=== PATIENT | male | born 1995 | race Caucasian/White ===

== ENCOUNTER → 2016-08-17 | Outpatient (CLI) | payer OTHER ==
--- NOTE | 2016-08-17 10:05 | DIAGNOSTIC IMAGING REPORT ---
LEFT KNEE 4 OR MORE CLINICAL HISTORY: Left knee pain. COMPARISON: None FINDINGS: Alignment of the left knee is anatomic with the exception of slight lateral patellar tilt. There is no fracture or joint effusion. Joint spaces are preserved. IMPRESSION: 1. No acute fracture or joint effusion of the left knee. 2. Slight lateral patellar tilt. Electronically signed by: Philipp Fox M.D. 08/17/2016 10:04 AM Dictated Date/Time: 08/17/2016 10:03 AM
== END | disposition home or self-care (01) ==
LOC: C.RDSM 13:52
PROVIDERS: ATTEND Family Medicine
DX: M25.562 Pain in left knee (principal)

== ENCOUNTER → 2016-09-29 | Outpatient (CLI) | payer OTHER ==
--- NOTE | 2016-09-29 15:20 | DIAGNOSTIC IMAGING REPORT ---
LEFT SHOULDER MIN 2 VIEWS HISTORY:21 yearsMaleLEFT SHOULDER PAIN status post injury. COMPARISON: None available. TECHNIQUE: 3 views of the left shoulder FINDINGS: No acute fracture, dislocation or significant degenerative changes. Bone mineralization is within normal limits. The soft tissues are unremarkable. IMPRESSION: No acute fracture or dislocation. The above report was generated using voice recognition software. It may contain grammatical, syntax or spelling errors. Electronically signed by: Sami Gonzalez M.D. 09/29/2016 3:19 PM Dictated Date/Time: 09/29/2016 3:14 PM
== END | disposition home or self-care (01) ==
LOC: C.RDSM 15:03
PROVIDERS: ATTEND Family Medicine
DX: M25.512 Pain in left shoulder (principal)